=== PATIENT | female | born 1965 | race Caucasian/White ===

== ENCOUNTER 2021-01-16 21:38 | Emergency (ER) | payer BC, SELFPAY ==
[2021-01-16] VITALS (8 sets, daily range): BP systolic 91–104; BP diastolic 62–80; PULSE 64; RESP 16; TEMP 35.7; O2SAT 95–98
--- NOTE | ~2021-01-16 | XR_ITS ---
EXAMINATION: XR ankle LT min 3V EXAM DATE: 01/16/2021 22:05 INDICATION: Left ankle pain. Injury. TECHNIQUE: Left ankle frontal, lateral and oblique projections obtained and reviewed. Comparison is m yevgeniy to prior examination from 2003. FINDINGS: There is acute closed posttraumatic fracture of the left fibular distal metaphysis extendi ng into the superolateral aspect of the ankle mortise with about 5 mm of posterior and lateral displa cement. Can't exclude small amount of widening of the mortise medially indicating medial ligamentous injury. Small inferior calcaneal spur. Soft tissue swelling overlying the ankle laterally. IMPRESSION: 1. Acute left distal fibular metaphyseal fracture into mortise 2. Possible medial ligamentous injury. 3. Orthopedic consult would be appropriate. Reviewed, dictated and finalized at [facility].
--- NOTE | 2021-01-16 23:10 | ED.LOWEXIN ---
HPI - Extremity Injury (Lower) General Chief Complaint: Extremity Injury, Lower Stated Complaint: left foot pain s/p fall 01/15 Time Seen by Provider: 01/16/21 22:47 History of Present Illness HPI Narrative: 55 yo female presents form home c/o an ankle injury. She reports that she twisted her ankle last night. Pain and swelling worse this morning. Unable to bear weight. No numbness, weakness, wound. Related Data Home Medications Medication Instructions Recorded Confirmed ascorbic acid (vitamin C) 1,000 mg 1 g PO DAILY 09/09/20 01/18/21 tablet cholecalciferol (vitamin D3) 50 50 mcg PO DAILY 09/09/20 01/18/21 mcg (2,000 unit) capsule cyanocobalamin (vitamin B-12) 1,000 mcg PO DAILY 09/09/20 01/18/21 1,000 mcg tablet,extended release vitamin E 200 unit capsule 200 unit PO DAILY 09/09/20 01/18/21 tramadol 50 - 100 mg PO Q6H PRN 01/16/21 01/18/21 Allergies Allergy/AdvReac Type Severity Reaction Status Date / Time No Known Allergies Allergy Verified 01/18/21 09:56 Review of Systems Review of Systems: All systems reviewed & are unremarkable except as noted in HPI and below Constitutional: Constitutional: Denies fever(s) Cardiovascular: Cardiovascular: Denies chest pain Respiratory: Respiratory: Denies dyspnea Musculoskeletal: Musculoskeletal: Denies back pain Neurologic: Denies dizziness, Denies numbness and Denies weakness PMFSH Past Medical History Medical History Arthritis Closed fracture of left distal fibula History of nausea and vomiting History of pyloric stenosis as a child Pyloric stenosis Surgical History Surgical History H/O section x 2 History of appendectomy [place] teeth removed Family History Family History Father Diabetes mellitus Heart disease Alcoholism Grandparent Alcoholism Diabetes mellitus Daughter Alcoholism Hypertension Depression Sibling Alcoholism Other Arthritis Kidney disorder Social History Social History Smoking status: Never smoker Alcohol intake: current Additional occupation/education comments: self employed Gender identity (if verbalized by the patient): Female Exam Const: General: healthy appearing, no acute distress and alert Orientation/consciousness: patient oriented x3 HENMT: Head: normal to inspection Neck: Neck: normal visual inspection Resp: Effort & Inspection: normal respiratory effort Cardio: Other: 2+ left DP Skin: General skin exam: normal color Wounds: no wounds Neuro: General: patient oriented x3, moves all extremities and CN's II-XI intact bilaterally Speech: normal speech Other: distal sensation and motor intact Extrem: Other: Moderate swelling to left lateral malleolus Course Vital Signs Vital signs: Vital Signs Temperature 35.7 C L 01/16/21 21:51 Pulse Rate 64 01/16/21 21:51 Respiratory Rate 16 01/16/21 21:51 Blood Pressure 91/62 L 01/16/21 21:51 Pulse Oximetry 98 01/16/21 21:51 Temperature 35.7 C L 01/16/21 21:51 Pulse Rate 64 01/16/21 21:51 Respiratory Rate 16 01/16/21 21:51 Blood Pressure 99/64 L 01/16/21 23:46 Pulse Oximetry 97 01/16/21 22:46 MDM - Extremity Injury (Lower) Differential Diagnosis Differential diagnosis: Likely ankle fracture Medical Records Attestation: I reviewed the patient's medical records. Imaging Data Radiologist's impression: ITS Impressions Ankle X-Ray 01/17/21 07:43 IMPRESSION: 1. Acute left distal fibular metaphyseal fracture into mortise 2. Possible medial ligamentous injury. 3. Orthopedic consult would be appropriate. Discharge Plan Discharge Clinical Impression: Ankle fracture, left Patient Disposition: Home, Self-Care Condition: Stabl
--- NOTE | 2021-01-17 00:29 | PC.NURSE ---
Patient refused crutches, states I have some at home.
== END 2021-01-17 00:33 | disposition home or self-care (01) ==
PROVIDERS: Emergency Provider Emergency Medicine; PCP Family Medicine
DX: S89.392A Other physeal fracture of lower end of left fibula, initial encounter for closed fracture (principal); M19.90 Unspecified osteoarthritis, unspecified site; X50.9XXA Other and unspecified overexertion or strenuous movements or postures, initial encounter
CPT/HCPCS: 29515; 73610; 99284

== ENCOUNTER 2021-05-02 02:37 | Day surgery (SDC) | payer BC, SELFPAY ==
[2021-04-14 14:59] VITALS: BMI 28.0
[2021-05-02 08:05] VITALS: BP 107/84; PULSE 70; RESP 17; TEMP 36; O2SAT 99; BMI 28.4
[2021-05-02] MEDS: LACTATED RINGERS 1,000 ML 150 ML IV CONT (08:20)
--- NOTE | 2021-05-02 08:34 | WPDANESEPPF ---
Anes - Initial Pre Proc Eval Procedure: Operation Date: 05/02/21 09:00 Proposed Procedures p Screening Colonoscopy - Milton Bear MD Date/Time: 05/02/21 08:34 Surgeon: Milton Bear MD Pre Op Diagnosis: neoplasm screening Patient Data Age: 56 Gender: F Height: 1.68 m Weight: 80 kg Last Vital Signs Temp 96.8 F L 05/02/21 08:05 Pulse 70 05/02/21 08:05 Resp 17 05/02/21 08:05 BP 107/84 05/02/21 08:05 Pulse Ox 99 05/02/21 08:05 Allergies Allergy/AdvReac Type Severity Reaction Status Date / Time No Known Allergies Allergy Verified 05/02/21 08:04 Home Medications Medication Instructions Recorded Confirmed Type ascorbic acid (vitamin C) 1,000 mg 1 g PO DAILY 09/09/20 05/02/21 History tablet cholecalciferol (vitamin D3) 50 50 mcg PO DAILY 09/09/20 05/02/21 History mcg (2,000 unit) capsule cyanocobalamin (vitamin B-12) 1,000 mcg PO DAILY 09/09/20 05/02/21 History 1,000 mcg tablet,extended release hydrocodone-acetaminophen 1 tablet PO Q6H PRN #15 tablet 01/17/21 05/02/21 Rx ondansetron 8 mg disintegrating 8 mg PO Q6-8H PRN #20 tablet 01/18/21 05/02/21 Rx tablet ibuprofen 800 mg tablet 800 mg PO TID PRN #60 tablet 02/08/21 05/02/21 Rx Patient hx anesthesia problems: none Family hx anesthesia problems: none Results Review: All pre-operative results and documents have been reviewed as part of the pre-operative evaluation. [facility] Past Medical History Medical History Arthritis Closed fracture of left distal fibula History of nausea and vomiting History of pyloric stenosis as a child Pyloric stenosis Surgical History Surgical History H/O section x 2 History of appendectomy [place] teeth removed Family History Family History Father Diabetes mellitus Heart disease Alcoholism Grandparent Alcoholism Diabetes mellitus Daughter Alcoholism Hypertension Depression Sibling Alcoholism Other Arthritis Kidney disorder Social History Social History Alcohol intake: current Alcohol use details: socially Substance use: never Substance use type: does not use Living arrangements: with family Additional occupation/education comments: self employed Gender identity (if verbalized by the patient): Female Anes - Eval Final PreProcedure Day of Procedure 05/02/21 08:34 Patient weight: overweight Heart: regular rate and rhythm Lungs: clear to auscultation Airway: Mallampati scale class II Neurological: alert and oriented Last oral intake: >/= 8 hours ASA classification: II Emergent: no Anesthetic plan: proceed Anesthesia type and monitoring: general GIVS and standard monitoring Results Review: All pre-operative results and documents have been reviewed as part of the pre-operative evaluation. Informed Consent: The patient's anesthetic plan and its attendant risks and benefits were discussed with the patient/family/POA. Questions were solicited and answers provided to the satisfaction of the patient/family/POA.
--- NOTE | 2021-05-02 08:41 | PM.HPGS ---
History of Present Illness History of Present Illness Consent: Risks, benefits, and alternatives have been discussed and questions answered. Patient agrees to proceed with procedure. Chief complaint: neoplasm screening Narrative: Aye Craven is a 56 year old female here for first screening colonoscopy Review of Systems Constitutional: Constitutional: Denies headache(s) and Denies weakness Eyes: Eyes: Denies blurry vision ENT: Reports Normal hearing present, Denies headache(s) and Denies neck pain Cardiovascular: Cardiovascular: Denies chest pain and Denies dyspnea Respiratory: Respiratory: Denies dyspnea Gastrointestinal: Gastrointestinal: Reports no additional gastrointestinal complaints Genitourinary: Genitourinary: Denies dysuria Musculoskeletal: Musculoskeletal: Denies neck pain Integumentary/Breasts: Skin/Breast: Denies dry skin Neurologic: Reports Normal hearing present, Denies headache(s) and Denies weakness Psychiatric: Psychiatric: Denies anxiety Endocrine: Endocrine: Denies change in body appearance Hematologic/Lymphatic: Hematologic/Lymphatic: Denies easy bleeding Allergic/Immunologic: Allergic/Immunologic: Denies urticaria [facility] Past Medical History Medical History (Updated 05/02/21 @ 08:42 by Milton Bear MD) Arthritis Closed fracture of left distal fibula Colon cancer screening History of nausea and vomiting History of pyloric stenosis as a child Pyloric stenosis Surgical History Surgical History H/O section x 2 History of appendectomy [place] teeth removed Family History Family History Father Diabetes mellitus Heart disease Alcoholism Grandparent Alcoholism Diabetes mellitus Daughter Alcoholism Hypertension Depression Sibling Alcoholism Other Arthritis Kidney disorder Social History Social History Alcohol intake: current Alcohol use details: socially Substance use: never Substance use type: does not use Living arrangements: with family Additional occupation/education comments: self employed Gender identity (if verbalized by the patient): Female Meds Home Medications and Allergies Home Medications Medication Instructions Recorded Confirmed Type ascorbic acid (vitamin C) 1,000 mg 1 g PO DAILY 09/09/20 05/02/21 History tablet cholecalciferol (vitamin D3) 50 50 mcg PO DAILY 09/09/20 05/02/21 History mcg (2,000 unit) capsule cyanocobalamin (vitamin B-12) 1,000 mcg PO DAILY 09/09/20 05/02/21 History 1,000 mcg tablet,extended release hydrocodone-acetaminophen 1 tablet PO Q6H PRN #15 tablet 01/17/21 05/02/21 Rx ondansetron 8 mg disintegrating 8 mg PO Q6-8H PRN #20 tablet 01/18/21 05/02/21 Rx tablet ibuprofen 800 mg tablet 800 mg PO TID PRN #60 tablet 02/08/21 05/02/21 Rx Allergies Allergy/AdvReac Type Severity Reaction Status Date / Time No Known Allergies Allergy Verified 05/02/21 08:04 Vital Signs Vital Signs - 24 hr 05/02/21 08:05 Temperature 96.8 F L Pulse Rate 70 Respiratory Rate 17 Blood Pressure 107/84 Pulse Oximetry 99 Exam Const: General: comfortable and no acute distress HENMT: General nose exam: Normal nares present Eyes: General: appearance normal, both eyes and all related structures Neck: Neck: no JVD Resp: Auscultation: clear to auscultation bilaterally Cardio: Rate: regular rate Rhythm: regular rhythm GI: Inspection: non-distended GI Palp: Yes Soft to palpation Skin: General skin exam: normal color Neuro: General: gait normal Speech: normal speech Extrem: General: normal to inspection Psych: Mental Status: mental status grossly normal Assessment and Plan Assessment and plan (1) Colon cancer screening: Code(s): Z12.11 - Encounter for screening for malignant
[2021-05-02 09:02] VITALS: BP 96/63; PULSE 66; RESP 18; O2SAT 98
[2021-05-02 09:12] VITALS: BP 130/69; PULSE 62; RESP 18; O2SAT 99
[2021-05-02 09:22] VITALS: BP 126/62; PULSE 60; RESP 20; O2SAT 100
== END 2021-05-02 09:33 | disposition home or self-care (01) ==
PROVIDERS: PCP Family Medicine; Visit Provider Internal Medicine Gastroenterology
PROC: 0DJD8ZZ Inspection of Lower Intestinal Tract, Via Natural or Artificial Opening Endoscopic (ICD-10-PCS; CPT 45378; principal; 2021-05-02 09:00)
DX: Z12.11 Encounter for screening for malignant neoplasm of colon (principal); K64.8 Other hemorrhoids
CPT/HCPCS: 45378; J2704; J7120

== ENCOUNTER 2021-10-20 11:13 | Outpatient (CLI) | payer OTHER, SELFPAY ==
--- NOTE | ~2021-10-20 | XR_ITS ---
[id number] DATE: 10/20/2021 11:30 INDICATION: Neck pain TECHNIQUE: AP, open-mouth, lateral views COMPARISON: None FINDINGS: There is reversal of cervical curvature which may be due to muscle spasm. C1 and C2 are normally aligned and the odontoid process is intact. No fracture or dislocation or lock ed facet or prevertebral soft tissue swelling is detected. There is 2 mm anterolisthesis at C3-4. There is moderately severe degenerative disc disease at C4-5 and C5-6. There is moderate degenerative disc disease at C6-7. Uncovertebral joint spurring is noted at C4-5, C5-6 particularly. IMPRESSION: Reversal of cervical curvature, which may be due to muscle spasm 2 mm anterolisthesis at C3-4 Multilevel degenerative disc disease and uncovertebral joint spurring, most pronounced at C4-5 and C5 -6 Reviewed, dictated and finalized at [facility]. Reviewed, dictated and finalized at location [facility]. IMPRESSION: Reversal of cervical curvature, which may be due to muscle spasm 2 mm anterolisthesis at C3-4 Multilevel degenerative disc disease and uncovertebral joint spurring, most pro nounced at C4-5 and C5-6
== END 2021-10-20 11:14 | disposition home or self-care (01) ==
LOC: ANHIMG 11:15
PROVIDERS: PCP Family Medicine; Visit Provider Nurse Practitioner Family
DX: M47.812 Spondylosis without myelopathy or radiculopathy, cervical region (principal)
CPT/HCPCS: 72040